=== PATIENT | male | born 1965 | race Caucasian/White ===

== ENCOUNTER 2016-10-21 13:47 | Emergency (ER) | payer OTHER ==
[2016-10-21] MEDS ORDERED: MOTRIN PO ONE (17:39)
[2016-10-21] MEDS ORDERED: TYLENOL ONE (19:31)
[2016-10-21] MEDS ORDERED: TYLENOL PO ONE (19:35)
[2016-10-21 20:05] VITALS: BP 124/62
--- NOTE | 2016-10-21 20:15 | Emergency Department Report ---
Chief Complaint: Dental/Oral Stated Complaint: TOOTHACHE Time Seen by Provider: 10/21/16 20:12 - HPI History of Present Illness: 51-year-old male presents today with left upper toothache 3 days. Positive for history of similar symptoms. Describes his pain as 10 out of 10 throbbing ache that comes and goes. Denies drainage or bleeding. Tried home remedies and ibuprofen without relief. Denies having the dentist to follow-up with. Denies fever, chills, nausea, vomiting, chest pain, shortness of breath, abdominal pain. - ROS Review of Systems: Constitutional: Denies chills, fever, diaphoresis, malaise, weakness Eyes: Denies eye pain ENT: Dental pain Denies ear pain, throat pain, congestion Respiratory: Denies cough, shortness of breath, wheezing Cardiovascular: Denies chest pain, palpitations Endocrine: No symptoms reported GI: Denies abdominal pain, nausea, vomiting, diarrhea Musculoskeletal: Denies back pain, joint swelling, arthralgia, myalgia Skin: Denies rash, lesions, pruritus Neurological: Denies headache, weakness, numbness, paresthesias - Exam Vital Signs: Vital Signs 10/21/16 10/21/16 10/21/16 15:35 17:46 20:04 Temperature 97.9 F 97.9 F Pulse Rate 65 57 L Respiratory 18 20 16 Rate Blood Pressure 127/78 Blood Pressure 124/62 [Right] O2 Sat by Pulse 100 98 Oximetry Physical Exam: GENERAL: The patient is well-developed and well-nourished. Patient is in NAD. HEAD: Normocephalic. Atraumatic. EYES: PERRL. EARS: External auditory canals and tympanic membranes clear; hearing grossly intact. NOSE: Normal nasal mucosa with no nasal discharge. THROAT: No erythema, swelling or exudates. DENTAL: Mininal tenderness to palpation of gum of tooth #14-15. Poor dental hygiene. No dental abscess noted. No bleeding or drainage. NECK: Supple, nontender, without lymphadenopathy. CHEST/LUNGS: Clear to auscultation throughout. HEART/CARDIOVASCULAR: Regular rate and rhythm. ABDOMEN: Abdomen is soft, nontender. No guarding or rebound tenderness. EXTREMITIES: Peripheral pulses intact. Capillary refill less than 2 seconds. NEURO: Alert and oriented x 3. Normal gait. MSE screening note: Focused history and physical exam performed. Due to findings the following was ordered: ED Medical Decision Making - Lab Data Vital Signs 10/21/16 10/21/16 10/21/16 15:35 17:46 20:04 Temperature 97.9 F 97.9 F Pulse Rate 65 57 L Respiratory 18 20 16 Rate Blood Pressure 127/78 Blood Pressure 124/62 [Right] O2 Sat by Pulse 100 98 Oximetry - Medical Decision Making 51-year-old male presents today with a toothache. He has been provided with a referral for a dentist. Patient is in no acute distress at this time. He will be discharged home and is encouraged to follow up with a primary care provider. He will be sent home on penicillin VK and naproxen and is encouraged to return to the emergency room for any worsening symptoms. ED Disposition for MSE Clinical Impression: Toothache Disposition: DISCHARGED TO HOME OR SELFCARE Is pt being admited?: No Does the pt Need Aspirin: No Condition: Stable Instructions: Toothache (ED), Dental Caries (ED) Additional Instructions: Follow-up with his dentist. Return to the emergency department if symptoms worsen. Prescriptions: Naproxen [Naprosyn] 500 mg PO BID #20 tablet Penicillin Vk [Veetids TAB] 500 mg PO QID #56 tablet Referrals: PRIMARY CARE, [Primary Care Provider] - 3-5 Days [facility] [Outside] - 3-5 Days [facility] [Outside] - 3-5 Days Forms: Work/School Release Form(ED) Time of Disposition: 20:46
[2016-10-21] MEDS ORDERED: TORADOL IM ONE (20:46)
== END 2016-10-21 20:47 | disposition home or self-care (01) ==
LOC: ED 13:47
DX: K08.89 Other specified disorders of teeth and supporting structures (principal)
CPT/HCPCS: 96372; 99282; J1885